=== PATIENT | female | born 1980 | race Caucasian/White ===

== ENCOUNTER 2017-07-23 21:42 | Emergency (ER) | payer BC ==
[2017-07-23 21:59] VITALS: BP 128/81; PULSE 94; TEMP 97.8; BMI 26.1
--- NOTE | 2017-07-23 22:33 | PDOC ---
History of Present Illness - General History Source: Patient Exam Limitations: No Limitations - History of Present Illness Initial Comments: 07/23/17 23:56 Patient is a 37 year old female with no significant past medical history who presents to the ED with complaints of diffuse lower abdominal pain that began this morning. Patient reports experiencing sudden onset of diffuse lower abdominal pain that began this morning while taking her daughter to the doctor. She reports pain is a sharp pain that is more intense on the right side and radiates to her back. Patient states lower right abdominal pain increases in intensity when coughing, walking and sitting in certain positions. Patient reports thinking pain was initially gas related so she drank multiple cups of seltzer water with no relief. She reports currently having a full sensation in her lower abdomen that resembles the feeling of being . Patient does report experiencing some flu like symptoms this morning prior to pain development but states she might have caught it from her daughter who is sick. She reports experiencing 1 episode of dark loose stool yesterday afternoon but states she has had no bowel movements today and has no appetite. Patient states she currently feels weak here in the ED. Denies nausea, vomiting. Denies chest pain, Sob. Denies fevers, chills. Denies out of state traveling. Denies dysuria, hematuria. Denies any other symptoms. Allergies: Penicillins. Social history: No smoking. No alcohol. No illicit drugs. Surgical history: None PMD: Dr. Quiroz <Nilesh Carranza - Last Filed: 07/23/17 23:55> <Aby Rodriguez - Last Filed: 07/24/17 01:51> - General Chief Complaint: Pain Stated Complaint: ABDOMINAL PAIN Time Seen by Provider: 07/23/17 22:32 Past History <Nilesh Carranza - Last Filed: 07/23/17 23:55> - Suicide/Smoking/Psychosocial Hx Smoking History: Never smoked Have you smoked in the past 12 months: No Information on smoking cessation initiated: No Hx Alcohol Use: No Drug/Substance Use Hx: No <Aby Rodriguez - Last Filed: 07/24/17 01:51> - Past Medical History Allergies/Adverse Reactions: Allergies Allergy/AdvReac Type Severity Reaction Status Date / Time Penicillins Allergy Verified 07/23/17 21:59 Home Medications: Ambulatory Orders Polyethylene Glycol 3350 [Miralax (For Daily Use) -] 17 gm PO DAILY #1 bottle Review of Systems - Review of Systems Able to Perform ROS?: Yes Comments:: 07/23/17 23:56 GENERAL/CONSTITUTIONAL: No fever or chills. No weakness. HEAD, EYES, EARS, NOSE AND THROAT: No change in vision. No ear pain or discharge. No sore throat. CARDIOVASCULAR: No chest pain or shortness of breath. RESPIRATORY: No cough, wheezing, or hemoptysis. GASTROINTESTINAL: +Right lower abdominal pain. +diarrhea. No nausea, vomiting, or constipation. GENITOURINARY: No dysuria, frequency, or change in urination. MUSCULOSKELETAL: No joint or muscle swelling or pain. No neck or back pain. SKIN: No rash NEUROLOGIC: No headache, vertigo, loss of consciousness, or change in strength/ sensation. ENDOCRINE: No increased thirst. No abnormal weight change. HEMATOLOGIC/LYMPHATIC: No anemia, easy bleeding, or history of blood clots. ALLERGIC/IMMUNOLOGIC: No hives or skin allergy. All Other Systems: Reviewed and Negative <Nilesh Carranza - Last Filed: 07/23/17 23:55> *Physical Exam - Vital Signs Last Vital Signs Temp Pulse Resp BP Pulse Ox 97.8 F 94 H 16 128/81 100 07/23/17 21:54 07/23/17 21:54 07/23/17 21:54 07/23/17 21:54 07/23/17 21:54 - Physical Exam Comments: 07/23/17 23:56 GENERAL: Awake, alert, and fully oriented, in no acute distress HEAD: No signs of trauma EYES: PERRLA, EOMI, sclera anicteric, conjunctiva clear ENT: Auricles normal inspection, hearing grossly normal, nares patent, oropharynx clear without exudates. Moist mucosa NECK: Normal ROM, supple, no lymphadenopathy, JVD, or masses LUNGS: Breath sounds equal, clear to auscultation bilaterally. No wheezes, and no crackles HEART: Regular rate and rhythm, normal S1 and S2, no murmurs, rubs or gallops ABDOMEN: +Right side abdomen gassy. +Right flank pain with percussion, not palpation. +Right lower quadrant tenderness. +Superpubic tenderness. No umbilical tenderness. Soft, nontender, normoactive bowel sounds. No guarding, no rebound. No masses EXTREMITIES: Normal range of motion, no edema. No clubbing or cyanosis. No cords, erythema, or tenderness NEUROLOGICAL: Cranial nerves II through XII grossly intact. Normal speech, normal gait SKIN: Warm, Dry, normal turgor, no rashes or lesions noted. <Nilesh Carranza - Last Filed: 07/23/17 23:55> - Vital Signs Last Vital Signs Temp Pulse Resp BP Pulse Ox 97.8 F 94 H 16 128/81 100 07/23/17 21:54 07/23/17 21:54 07/23/17 21:54 07/23/17 21:54 07/23/17 21:54 <Aby Rodriguez - Last Filed: 07/24/17 01:51> ED Treatment Course - LABORATORY CBC & Chemistry Diagram: 07/23/17 23:30 07/23/17 23:30 <Nilesh Carranza - Last Filed: 07/23/17 23:55> - LABORATORY CBC & Chemistry Diagram: 07/23/17 23:30 07/23/17 23:30 <Aby Rodriguez - Last Filed: 07/24/17 01:51> Medical Decision Making - Medical Decision Making 07/24/17 01:48 THIS IS A PRELIMINARY REPORT FROM IMAGING ASSISTANT PROFESSOR SCULPTURE DATE OF SERVICE: 2017-07-24 00:55:54 IMAGES: [id number] EXAM: CT ABDOMEN AND PELVIS without contrast HISTORY: Rule out kidney stone COMPARISON: None. FINDINGS: Negative for right or left urinary tract stone or obstruction. Slightly dense medullary pyramids especially on left. Nonspecific. No bowel obstruction, free air, or free fluid. Normal appendix visualized. Negative for diverticulitis or colitis. No acute abnormalities of the spleen, gallbladder, pancreas, or adrenal glands. Multiple tiny liver cysts. No obvious abnormalities of the pelvic organs. Osseous structures are intact. Abundant stool in the colon. THIS DOCUMENT HAS BEEN ELECTRONICALLY SIGNED <Aby Rodriguez - Last Filed: 07/24/17 01:51> *DC/Admit/Observation/Transfer - Attestations Scribe Attestion: 07/23/17 23:56 Documentation prepared by Nilesh Carranza, acting as medical appliance maker for Aby Rodriguez MD/DO. <Nilesh Carranza - Last Filed: 07/23/17 23:55> - Discharge Dispostion Admit: No <Aby Rodriguez - Last Filed: 07/24/17 01:51> Diagnosis at time of Disposition: Viral gastroenteritis - Discharge Dispostion Disposition: HOME Condition at time of disposition: Stable - Prescriptions Prescriptions: Polyethylene Glycol 3350 [Miralax (For Daily Use) -] 17 gm PO DAILY #1 bottle - Referrals Referrals: John Quiroz MD [Primary Care Provider] - - Patient Instructions Printed Discharge Instructions: Viral Gastroenteritis, DI for Constipation
[2017-07-23 23:42] LABS: BASO % 0.4 % (0-2.0); EOS % 0.3 % (0-4.5); HEMATOCRIT 37.7 % (32.4-45.2); HEMOGLOBIN 12.8 GM/dL (10.7-15.3); LYMPH % 7.6 % (8-40); MCHC 33.9 g/dl (32.0-36.0); MEAN CELL VOLUME 88.4 fl (80-96); MEAN PLT VOLUME 8.7 fl (7.5-11.1); MONO % 5.5 % (3.8-10.2); NEUT % 86.2 % (42.8-82.8); PLATELET COUNT 300 K/MM3 (134-434); RBC 4.26 M/mm3 (3.60-5.2); WHITE BLOOD COUNT 19.3 K/mm3 (4.0-10.0)
[2017-07-23] MEDS ORDERED: SODIUM CHLORIDE 0.9% 500 ML INFUS.BAG IV ONE (23:53)
[2017-07-23 23:57] LABS: URINE APPEARANCE CLEAR; URINE BILIRUBIN NEGATIVE (NEGATIVE); URINE BLOOD NEGATIVE (NEGATIVE); URINE COLOR YELLOW; URINE GLUCOSE (UA) NEGATIVE (NEGATIVE); URINE KETONE 1+ (NEGATIVE); URINE LEUK ESTERASE NEGATIVE (NEGATIVE); URINE NITRITE NEGATIVE (NEGATIVE); URINE UROBILINOGEN 4.0 E.U/dl mg/dL (0.2-1.0)
[2017-07-24 00:12] LABS: URINE PROTEIN 2+ (NEGATIVE)
[2017-07-24 00:21] LABS: EPI CELLS RARE /HPF (FEW); URINE MUCUS RARE
[2017-07-24 00:22] LABS: ALBUMIN 3.7 g/dl (3.4-5.0); AMYLASE 58 U/L (25-115); ANION GAP 6 (8-16); BLOOD UREA NITROGEN 23 mg/dL (7-18); CALCIUM 9.2 mg/dL (8.5-10.1); CHLORIDE 102 mmol/L (98-107); CO2 30 mmol/L (21-32); GLUCOSE,RANDOM 92 mg/dL (74-106); HCG,QUALITATIVE URINE NEGATIVE; LIPASE 125 U/L (73-393); SGPT/ALT 18 U/L (12-78); SODIUM 138 mmol/L (136-145)
[2017-07-24 00:24] LABS: ALK PHOS 91 U/L (45-117); BILIRUBIN,TOTAL 0.4 mg/dL (0.2-1.0); TOT PROT 7.2 g/dl (6.4-8.2)
[2017-07-24 00:28] LABS: POTASSIUM 4.2 mmol/L (3.5-5.1); SGOT/AST 16 U/L (15-37)
[2017-07-24] MEDS ORDERED: LACTULOSE 20 GM/30 ML UDC (FOR ORAL USE ONLY) PO ONE (01:49)
[2017-07-24] MEDS ORDERED: LACTULOSE 20 GM/30 ML UDC (FOR ORAL USE ONLY) ONE (02:05)
== END 2017-07-24 02:27 | disposition home or self-care (01) ==
LOC: JER 21:42
DX: A08.4 Viral intestinal infection, unspecified (principal); B97.89 Other viral agents as the cause of diseases classified elsewhere
CPT/HCPCS: 36415; 74176; 80053; 81003; 81015; 82150; 83690; 84703; 85025; 99281-25